=== PATIENT | female | born 1935 | race Caucasian/White ===

== ENCOUNTER 2016-04-21 10:27 | Inpatient (IN) | payer MEDICARE, BC ==
[~2016-04-21] VITALS: Ht 165.1 cm; Wt 48.2 kg
[2016-04-21] MEDS ORDERED: MAG HYDROX 30 ML UDC PO PRN (12:40)
[2016-04-21] MEDS ORDERED: PNEUMO VAC 25 MCG/0.5 ML VL IM.VACC ONE (12:40)
[2016-04-21] MEDS: PROPAFENONE 150 MG TAB PO SCH (16:00)
[2016-04-21] MEDS: ENOXAPARIN 40 MG/0.4 ML SYR SUBQ SCH (17:01)
[2016-04-21] MEDS: DILTIAZEM CD 180 MG CAP PO SCH (17:01)
[2016-04-21] MEDS: DULoxetine 30 MG CAP PO SCH (17:02)
[2016-04-21] MEDS: LINZESS 145 MCG CAPSULE PO SCH (17:02)
[2016-04-21] MEDS: FLUTICASONE 0.05% NA BTL NARE EACH SCH (17:03)
[2016-04-21] MEDS: LISINOPRIL 10 MG TAB PO SCH (17:04)
[2016-04-21 17:34] VITALS: BP_SYST 146; BP_SYST 152; RESP 18; TEMP 98.3
[2016-04-21 17:35] VITALS: RESP 16
[2016-04-21] MEDS: GABAPENTIN 300 MG CAP PO SCH (20:30)
[2016-04-21] MEDS: SYSTANE OP SOLN EYE EACH PRN (20:30)
[2016-04-21] MEDS: ROSUVASTATIN 5 MG TAB PO SCH (20:30)
[2016-04-21] MEDS ORDERED: TUBERCULIN PPD 5 UNIT SYR ID.VACC ONE (21:00)
[2016-04-21] MEDS: ZOLPIDEM 5 MG TAB PO PRN (21:35)
[2016-04-21] MEDS: TRAMADOL 50 MG TAB PO PRN (21:39)
[2016-04-22] MEDS: PROPAFENONE 150 MG TAB PO SCH ×4 (02:03→23:44)
[2016-04-22 03:18] VITALS: BP_SYST 147; TEMP 97.9
[2016-04-22 03:19] VITALS: RESP 18
[2016-04-22] MEDS: LINZESS 145 MCG CAPSULE PO SCH (06:28)
[2016-04-22] MEDS: TRAMADOL 50 MG TAB PO PRN ×2 (07:21→18:35)
[2016-04-22 11:20] VITALS: Ht 165.1 cm; Wt 48.2 kg
[2016-04-22 11:32] VITALS: BP_SYST 136; RESP 16; TEMP 97.6
[2016-04-22] MEDS: ACETAMINOPHEN 325 MG TAB PO PRN ×2 (12:54→17:06)
[2016-04-22] MEDS: SYSTANE OP SOLN EYE EACH PRN ×2 (13:02→21:48)
[2016-04-22] MEDS: FLUTICASONE 0.05% NA BTL NARE EACH SCH (13:03)
[2016-04-22] MEDS: DILTIAZEM CD 180 MG CAP PO SCH (13:04)
[2016-04-22] MEDS: DULoxetine 30 MG CAP PO SCH (13:04)
[2016-04-22] MEDS: LISINOPRIL 10 MG TAB PO SCH (13:05)
[2016-04-22] MEDS: ENOXAPARIN 40 MG/0.4 ML SYR SUBQ SCH (13:08)
[2016-04-22 16:31] VITALS: BP_SYST 166; RESP 16; TEMP 98.2
[2016-04-22] MEDS: BEN GAY TOPICAL PRN (18:36)
[2016-04-22] MEDS: ROSUVASTATIN 5 MG TAB PO SCH (20:31)
[2016-04-22] MEDS: GABAPENTIN 300 MG CAP PO SCH (20:31)
[2016-04-22] MEDS: DOCUSATE SOD 100 MG CAP PO SCH (20:31)
[2016-04-22] MEDS: ZOLPIDEM 5 MG TAB PO PRN (21:48)
[2016-04-23] MEDS: TRAMADOL 50 MG TAB PO PRN ×3 (04:50→18:43)
[2016-04-23 05:16] VITALS: BP_SYST 152; TEMP 98
[2016-04-23] MEDS: LINZESS 145 MCG CAPSULE PO SCH (06:03)
[2016-04-23] MEDS: DULoxetine 30 MG CAP PO SCH (09:16)
[2016-04-23] MEDS: DILTIAZEM CD 180 MG CAP PO SCH (09:17)
[2016-04-23] MEDS: PROPAFENONE 150 MG TAB PO SCH ×2 (09:17→16:33)
[2016-04-23] MEDS: LISINOPRIL 10 MG TAB PO SCH (09:17)
[2016-04-23] MEDS: DOCUSATE SOD 100 MG CAP PO SCH ×2 (09:17→20:52)
[2016-04-23] MEDS: ENOXAPARIN 40 MG/0.4 ML SYR SUBQ SCH (09:18)
[2016-04-23] MEDS: FLUTICASONE 0.05% NA BTL NARE EACH SCH (09:25)
[2016-04-23] MEDS: SYSTANE OP SOLN EYE EACH PRN (09:47)
[2016-04-23 10:09] VITALS: BP_SYST 146; RESP 16; TEMP 97.8
[2016-04-23] MEDS: BEN GAY TOPICAL PRN (14:07)
[2016-04-23] MEDS: ACETAMINOPHEN 325 MG TAB PO PRN (14:07)
[2016-04-23 15:51] VITALS: BP_SYST 147; TEMP 98.4
[2016-04-23 15:52] VITALS: RESP 16
[2016-04-23] MEDS: ZOLPIDEM 5 MG TAB PO PRN (20:52)
[2016-04-23] MEDS: GABAPENTIN 300 MG CAP PO SCH (20:52)
[2016-04-23] MEDS: ROSUVASTATIN 5 MG TAB PO SCH (20:52)
[2016-04-23] MEDS: SKIN TEST: READ AND RECORD XX SCH (20:53)
[2016-04-24] MEDS: PROPAFENONE 150 MG TAB PO SCH ×3 (00:01→16:46)
[2016-04-24 03:56] VITALS: BP_SYST 137; RESP 18; TEMP 97.8
[2016-04-24] MEDS: LINZESS 145 MCG CAPSULE PO SCH (05:58)
[2016-04-24] MEDS: DOCUSATE SOD 100 MG CAP PO SCH ×2 (08:49→21:33)
[2016-04-24] MEDS: TRAMADOL 50 MG TAB PO PRN ×2 (08:49→16:47)
[2016-04-24] MEDS: FLUTICASONE 0.05% NA BTL NARE EACH SCH (08:50)
[2016-04-24] MEDS: DULoxetine 30 MG CAP PO SCH (08:50)
[2016-04-24] MEDS: DILTIAZEM CD 180 MG CAP PO SCH (08:50)
[2016-04-24] MEDS: LISINOPRIL 10 MG TAB PO SCH (08:50)
[2016-04-24] MEDS: ENOXAPARIN 40 MG/0.4 ML SYR SUBQ SCH (08:51)
[2016-04-24] MEDS: SYSTANE OP SOLN EYE EACH PRN (09:56)
[2016-04-24 10:15] VITALS: BP_SYST 131; RESP 18; TEMP 98.9
[2016-04-24 15:29] VITALS: BP_SYST 122; RESP 18; TEMP 98.6
[2016-04-24] MEDS: ZOLPIDEM 5 MG TAB PO PRN (21:33)
[2016-04-24] MEDS: BEN GAY TOPICAL PRN (21:33)
[2016-04-24] MEDS: GABAPENTIN 300 MG CAP PO SCH (21:33)
[2016-04-24] MEDS: ROSUVASTATIN 5 MG TAB PO SCH (21:33)
[2016-04-25] MEDS ORDERED: TRAMADOL 50 MG TAB ONE (00:03)
[2016-04-25] MEDS: PROPAFENONE 150 MG TAB PO SCH ×4 (00:07→23:41)
[2016-04-25] MEDS: TRAMADOL 50 MG TAB PO PRN ×4 (00:09→22:12)
[2016-04-25] MEDS ORDERED: TRAMADOL 50 MG TAB PO PRN (03:55)
[2016-04-25 06:05] VITALS: BP_SYST 136; RESP 18; TEMP 97.9
[2016-04-25] MEDS: LINZESS 145 MCG CAPSULE PO SCH (06:28)
[2016-04-25] MEDS: FLUTICASONE 0.05% NA BTL NARE EACH SCH (08:47)
[2016-04-25] MEDS: SYSTANE OP SOLN EYE EACH PRN ×2 (08:47→20:35)
[2016-04-25] MEDS: DILTIAZEM CD 180 MG CAP PO SCH (08:49)
[2016-04-25] MEDS: DULoxetine 30 MG CAP PO SCH (08:49)
[2016-04-25] MEDS: LISINOPRIL 10 MG TAB PO SCH (08:49)
[2016-04-25] MEDS: DOCUSATE SOD 100 MG CAP PO SCH ×2 (08:49→20:35)
[2016-04-25] MEDS: ENOXAPARIN 40 MG/0.4 ML SYR SUBQ SCH (08:50)
[2016-04-25 13:37] VITALS: BP_SYST 129; RESP 16; TEMP 98.3
[2016-04-25 16:14] VITALS: BP_SYST 126; RESP 18; TEMP 98.5
[2016-04-25] MEDS: GABAPENTIN 300 MG CAP PO SCH (20:35)
[2016-04-25] MEDS: ROSUVASTATIN 5 MG TAB PO SCH (20:35)
[2016-04-25] MEDS: ZOLPIDEM 5 MG TAB PO PRN (22:12)
[2016-04-26 03:46] VITALS: BP_SYST 152; RESP 18; TEMP 98.2
[2016-04-26 03:47] VITALS: TEMP 98.2
[2016-04-26] MEDS: LINZESS 145 MCG CAPSULE PO SCH (06:10)
[2016-04-26] MEDS: DILTIAZEM CD 180 MG CAP PO SCH (08:23)
[2016-04-26] MEDS: DOCUSATE SOD 100 MG CAP PO SCH ×2 (08:23→20:32)
[2016-04-26] MEDS: LISINOPRIL 10 MG TAB PO SCH (08:23)
[2016-04-26] MEDS: DULoxetine 30 MG CAP PO SCH (08:23)
[2016-04-26] MEDS: PROPAFENONE 150 MG TAB PO SCH ×2 (08:23→15:38)
[2016-04-26] MEDS: FLUTICASONE 0.05% NA BTL NARE EACH SCH (08:23)
[2016-04-26] MEDS: ENOXAPARIN 40 MG/0.4 ML SYR SUBQ SCH (08:27)
[2016-04-26 09:38] VITALS: BP_SYST 122; RESP 16; TEMP 98.1
[2016-04-26] MEDS: SYSTANE OP SOLN EYE EACH PRN (09:40)
[2016-04-26 16:01] VITALS: BP_SYST 131; RESP 18; TEMP 98.8
[2016-04-26] MEDS: ROSUVASTATIN 5 MG TAB PO SCH (20:32)
[2016-04-26] MEDS: GABAPENTIN 300 MG CAP PO SCH (20:32)
[2016-04-26] MEDS: ZOLPIDEM 5 MG TAB PO PRN (22:09)
[2016-04-26] MEDS: TRAMADOL 50 MG TAB PO PRN (22:09)
[2016-04-27] MEDS: PROPAFENONE 150 MG TAB PO SCH ×3 (00:21→16:21)
[2016-04-27 04:53] VITALS: BP_SYST 131; RESP 18; TEMP 98.3
[2016-04-27 04:54] VITALS: TEMP 98.3
[2016-04-27] MEDS: LINZESS 145 MCG CAPSULE PO SCH (06:05)
[2016-04-27] MEDS ORDERED: MISSING DOSE XX ONE (09:55)
[2016-04-27] MEDS: DOCUSATE SOD 100 MG CAP PO SCH ×2 (09:57→21:11)
[2016-04-27] MEDS: DILTIAZEM CD 180 MG CAP PO SCH (09:57)
[2016-04-27] MEDS: FLUTICASONE 0.05% NA BTL NARE EACH SCH (09:57)
[2016-04-27] MEDS: LISINOPRIL 10 MG TAB PO SCH (09:57)
[2016-04-27] MEDS: ENOXAPARIN 40 MG/0.4 ML SYR SUBQ SCH (09:57)
[2016-04-27] MEDS: DULoxetine 30 MG CAP PO SCH (09:58)
[2016-04-27] MEDS: SYSTANE OP SOLN EYE EACH PRN (10:03)
[2016-04-27 13:50] VITALS: BP_SYST 121; RESP 16; TEMP 98.4
[2016-04-27 13:59] VITALS: BP_SYST 121; RESP 16; TEMP 98.4
[2016-04-27] MEDS: ACETAMINOPHEN 325 MG TAB PO PRN (16:22)
[2016-04-27 17:16] VITALS: BP_SYST 116; RESP 18; TEMP 98.5
[2016-04-27] MEDS: ROSUVASTATIN 5 MG TAB PO SCH (21:11)
[2016-04-27] MEDS: GABAPENTIN 300 MG CAP PO SCH (21:11)
[2016-04-27] MEDS: ZOLPIDEM 5 MG TAB PO PRN (21:13)
[2016-04-27] MEDS: TRAMADOL 50 MG TAB PO PRN (21:14)
[2016-04-27 23:25] VITALS: BP_SYST 147; RESP 18; TEMP 98.1
[2016-04-28] MEDS: PROPAFENONE 150 MG TAB PO SCH ×4 (00:08→23:39)
[2016-04-28] MEDS: LINZESS 145 MCG CAPSULE PO SCH (06:05)
[2016-04-28 07:46] VITALS: BP_SYST 110; RESP 16; TEMP 97.9
[2016-04-28] MEDS: FLUTICASONE 0.05% NA BTL NARE EACH SCH (09:25)
[2016-04-28] MEDS: DOCUSATE SOD 100 MG CAP PO SCH ×2 (09:25→20:34)
[2016-04-28] MEDS: SYSTANE OP SOLN EYE EACH PRN (09:25)
[2016-04-28] MEDS: LISINOPRIL 10 MG TAB PO SCH (09:26)
[2016-04-28] MEDS: ENOXAPARIN 40 MG/0.4 ML SYR SUBQ SCH (09:29)
[2016-04-28] MEDS: DILTIAZEM CD 180 MG CAP PO SCH (09:29)
[2016-04-28] MEDS: DULoxetine 30 MG CAP PO SCH (09:29)
[2016-04-28] MEDS: TRAMADOL 50 MG TAB PO PRN ×3 (09:34→22:01)
[2016-04-28 16:34] VITALS: BP_SYST 125; RESP 18; TEMP 98.5
[2016-04-28] MEDS: ROSUVASTATIN 5 MG TAB PO SCH (20:34)
[2016-04-28] MEDS: GABAPENTIN 300 MG CAP PO SCH (20:34)
[2016-04-28] MEDS ORDERED: TUBERCULIN PPD 5 UNIT SYR ID.VACC ONE (21:00)
[2016-04-28] MEDS: ZOLPIDEM 5 MG TAB PO PRN (22:01)
[2016-04-29] MEDS: LINZESS 145 MCG CAPSULE PO SCH (06:01)
[2016-04-29 06:34] VITALS: BP_SYST 139; RESP 18; TEMP 97.9
[2016-04-29] MEDS: DOCUSATE SOD 100 MG CAP PO SCH ×2 (08:39→20:30)
[2016-04-29] MEDS: PROPAFENONE 150 MG TAB PO SCH ×3 (08:39→23:49)
[2016-04-29] MEDS: LISINOPRIL 10 MG TAB PO SCH (08:39)
[2016-04-29] MEDS: DULoxetine 30 MG CAP PO SCH (08:39)
[2016-04-29] MEDS: DILTIAZEM CD 180 MG CAP PO SCH (08:39)
[2016-04-29] MEDS: TRAMADOL 50 MG TAB PO PRN ×2 (08:39→18:36)
[2016-04-29] MEDS: SYSTANE OP SOLN EYE EACH PRN ×2 (08:40→20:31)
[2016-04-29] MEDS: FLUTICASONE 0.05% NA BTL NARE EACH SCH (08:40)
[2016-04-29] MEDS: ENOXAPARIN 40 MG/0.4 ML SYR SUBQ SCH (08:41)
[2016-04-29 10:33] VITALS: BP_SYST 111; RESP 16; TEMP 97.7
[2016-04-29 16:24] VITALS: BP_SYST 133; RESP 16; TEMP 98.1
[2016-04-29] MEDS: GABAPENTIN 300 MG CAP PO SCH (20:30)
[2016-04-29] MEDS: ROSUVASTATIN 5 MG TAB PO SCH (20:30)
[2016-04-29] MEDS: BEN GAY TOPICAL PRN (20:31)
[2016-04-29] MEDS: ZOLPIDEM 5 MG TAB PO PRN (21:36)
[2016-04-30 05:31] VITALS: BP_SYST 141; RESP 20; TEMP 98.1
[2016-04-30] MEDS: LINZESS 145 MCG CAPSULE PO SCH (06:11)
[2016-04-30] MEDS: FLUTICASONE 0.05% NA BTL NARE EACH SCH (08:29)
[2016-04-30] MEDS: DULoxetine 30 MG CAP PO SCH (08:30)
[2016-04-30] MEDS: DILTIAZEM CD 180 MG CAP PO SCH (08:30)
[2016-04-30] MEDS: PROPAFENONE 150 MG TAB PO SCH ×3 (08:30→23:30)
[2016-04-30] MEDS: LISINOPRIL 10 MG TAB PO SCH (08:30)
[2016-04-30] MEDS: DOCUSATE SOD 100 MG CAP PO SCH ×2 (08:30→20:24)
[2016-04-30] MEDS: TRAMADOL 50 MG TAB PO PRN ×2 (08:32→20:25)
[2016-04-30] MEDS: ENOXAPARIN 40 MG/0.4 ML SYR SUBQ SCH (08:39)
[2016-04-30 12:01] VITALS: BP_SYST 119; RESP 18; TEMP 98.3
[2016-04-30 16:26] VITALS: BP_SYST 112; RESP 16; TEMP 98.4
[2016-04-30] MEDS: GABAPENTIN 300 MG CAP PO SCH (20:24)
[2016-04-30] MEDS: ROSUVASTATIN 5 MG TAB PO SCH (20:24)
[2016-04-30] MEDS: SKIN TEST: READ AND RECORD XX SCH (20:27)
[2016-04-30] MEDS: ZOLPIDEM 5 MG TAB PO PRN (21:33)
[2016-04-30] MEDS: SYSTANE OP SOLN EYE EACH PRN (21:36)
[2016-05-01 00:45] VITALS: BP_SYST 139; RESP 18; TEMP 98
[2016-05-01] MEDS: LINZESS 145 MCG CAPSULE PO SCH (06:14)
[2016-05-01] MEDS: LISINOPRIL 10 MG TAB PO SCH (08:53)
[2016-05-01] MEDS: FLUTICASONE 0.05% NA BTL NARE EACH SCH (08:53)
[2016-05-01] MEDS: DOCUSATE SOD 100 MG CAP PO SCH ×2 (08:53→20:11)
[2016-05-01] MEDS: PROPAFENONE 150 MG TAB PO SCH ×3 (08:54→23:00)
[2016-05-01] MEDS: DILTIAZEM CD 180 MG CAP PO SCH (08:54)
[2016-05-01] MEDS: DULoxetine 30 MG CAP PO SCH (08:54)
[2016-05-01] MEDS: ENOXAPARIN 40 MG/0.4 ML SYR SUBQ SCH (08:55)
[2016-05-01] MEDS: SYSTANE OP SOLN EYE EACH PRN ×2 (08:56→21:30)
[2016-05-01] MEDS: BEN GAY TOPICAL PRN (11:06)
[2016-05-01] MEDS: TRAMADOL 50 MG TAB PO PRN ×2 (11:07→17:57)
[2016-05-01 13:15] VITALS: BP_SYST 125; RESP 16; TEMP 98.2
[2016-05-01 13:16] VITALS: TEMP 98.2
[2016-05-01 16:55] VITALS: BP_SYST 140; RESP 18; TEMP 98.5
[2016-05-01] MEDS: ROSUVASTATIN 5 MG TAB PO SCH (20:11)
[2016-05-01] MEDS: GABAPENTIN 300 MG CAP PO SCH (20:11)
[2016-05-01] MEDS: ZOLPIDEM 5 MG TAB PO PRN (21:30)
[2016-05-02] VITALS (7 sets, daily range): BP systolic 115–140; RESP 18; TEMP 97.8–98.1
[2016-05-02] MEDS: LINZESS 145 MCG CAPSULE PO SCH (06:07)
[2016-05-02] MEDS: PROPAFENONE 150 MG TAB PO SCH ×3 (08:18→23:52)
[2016-05-02] MEDS: DILTIAZEM CD 180 MG CAP PO SCH (08:18)
[2016-05-02] MEDS: SYSTANE OP SOLN EYE EACH PRN (08:18)
[2016-05-02] MEDS: DULoxetine 30 MG CAP PO SCH (08:18)
[2016-05-02] MEDS: LISINOPRIL 10 MG TAB PO SCH (08:19)
[2016-05-02] MEDS: TRAMADOL 50 MG TAB PO PRN ×2 (08:19→16:30)
[2016-05-02] MEDS: DOCUSATE SOD 100 MG CAP PO SCH ×2 (08:19→20:53)
[2016-05-02] MEDS: ENOXAPARIN 40 MG/0.4 ML SYR SUBQ SCH (08:20)
[2016-05-02] MEDS: FLUTICASONE 0.05% NA BTL NARE EACH SCH (08:20)
[2016-05-02] MEDS: ROSUVASTATIN 5 MG TAB PO SCH (20:53)
[2016-05-02] MEDS: GABAPENTIN 300 MG CAP PO SCH (20:53)
[2016-05-02] MEDS: ZOLPIDEM 5 MG TAB PO PRN (21:30)
[2016-05-03] MEDS: LINZESS 145 MCG CAPSULE PO SCH (06:13)
[2016-05-03] MEDS: SYSTANE OP SOLN EYE EACH PRN (09:35)
[2016-05-03] MEDS: FLUTICASONE 0.05% NA BTL NARE EACH SCH (09:35)
[2016-05-03] MEDS: PROPAFENONE 150 MG TAB PO SCH ×3 (09:35→23:28)
[2016-05-03] MEDS: ENOXAPARIN 40 MG/0.4 ML SYR SUBQ SCH (09:36)
[2016-05-03] MEDS: LISINOPRIL 10 MG TAB PO SCH (09:37)
[2016-05-03] MEDS: TRAMADOL 50 MG TAB PO PRN ×2 (09:37→16:28)
[2016-05-03] MEDS: DOCUSATE SOD 100 MG CAP PO SCH ×2 (09:37→20:35)
[2016-05-03] MEDS: DILTIAZEM CD 180 MG CAP PO SCH (09:38)
[2016-05-03] MEDS: DULoxetine 30 MG CAP PO SCH (09:38)
[2016-05-03 09:40] VITALS: TEMP 98
[2016-05-03 09:43] VITALS: BP_SYST 126; RESP 20
[2016-05-03 20:10] VITALS: BP_SYST 129; TEMP 99
[2016-05-03] MEDS: GABAPENTIN 300 MG CAP PO SCH (20:35)
[2016-05-03] MEDS: ROSUVASTATIN 5 MG TAB PO SCH (20:35)
[2016-05-03] MEDS: ZOLPIDEM 5 MG TAB PO PRN (21:42)
[2016-05-03] MEDS: BEN GAY TOPICAL PRN (21:42)
[2016-05-04 02:12] VITALS: BP_SYST 148; RESP 20; TEMP 98
[2016-05-04] MEDS: LINZESS 145 MCG CAPSULE PO SCH (06:20)
[2016-05-04] MEDS: PROPAFENONE 150 MG TAB PO SCH ×3 (08:28→23:23)
[2016-05-04] MEDS: DULoxetine 30 MG CAP PO SCH (08:28)
[2016-05-04] MEDS: DILTIAZEM CD 180 MG CAP PO SCH (08:28)
[2016-05-04] MEDS: DOCUSATE SOD 100 MG CAP PO SCH ×2 (08:28→20:52)
[2016-05-04] MEDS: FLUTICASONE 0.05% NA BTL NARE EACH SCH (08:28)
[2016-05-04] MEDS: LISINOPRIL 10 MG TAB PO SCH (08:29)
[2016-05-04] MEDS: ENOXAPARIN 40 MG/0.4 ML SYR SUBQ SCH (08:30)
[2016-05-04 09:31] VITALS: BP_SYST 114; RESP 16; TEMP 97.7
[2016-05-04 15:50] VITALS: BP_SYST 121; RESP 18; TEMP 98
[2016-05-04] MEDS: SYSTANE OP SOLN EYE EACH PRN (16:20)
[2016-05-04] MEDS: TRAMADOL 50 MG TAB PO PRN (17:57)
[2016-05-04] MEDS: ROSUVASTATIN 5 MG TAB PO SCH (20:52)
[2016-05-04] MEDS: BEN GAY TOPICAL PRN (20:52)
[2016-05-04] MEDS: GABAPENTIN 300 MG CAP PO SCH (20:52)
[2016-05-04] MEDS: ZOLPIDEM 5 MG TAB PO PRN (21:21)
[2016-05-04 22:41] VITALS: BP_SYST 136; RESP 18; TEMP 97.8
[2016-05-05] MEDS: LINZESS 145 MCG CAPSULE PO SCH (06:10)
[2016-05-05 09:41] VITALS: BP_SYST 143
[2016-05-05 09:42] VITALS: RESP 20; TEMP 98.2
[2016-05-05] MEDS: PROPAFENONE 150 MG TAB PO SCH ×3 (10:24→23:52)
[2016-05-05] MEDS: SYSTANE OP SOLN EYE EACH PRN (10:24)
[2016-05-05] MEDS: LISINOPRIL 10 MG TAB PO SCH (10:25)
[2016-05-05] MEDS: DOCUSATE SOD 100 MG CAP PO SCH ×2 (10:25→20:53)
[2016-05-05] MEDS: ENOXAPARIN 40 MG/0.4 ML SYR SUBQ SCH (10:26)
[2016-05-05] MEDS: DULoxetine 30 MG CAP PO SCH (10:26)
[2016-05-05] MEDS: DILTIAZEM CD 180 MG CAP PO SCH (10:27)
[2016-05-05] MEDS: FLUTICASONE 0.05% NA BTL NARE EACH SCH (10:28)
[2016-05-05] MEDS: TRAMADOL 50 MG TAB PO PRN ×2 (10:28→16:39)
[2016-05-05 15:53] VITALS: BP_SYST 115; RESP 18; TEMP 98.3
[2016-05-05] MEDS: GABAPENTIN 300 MG CAP PO SCH (20:53)
[2016-05-05] MEDS: ROSUVASTATIN 5 MG TAB PO SCH (20:53)
[2016-05-05] MEDS: ZOLPIDEM 5 MG TAB PO PRN (21:39)
[2016-05-06 00:11] VITALS: BP_SYST 126; RESP 18; TEMP 97.7
[2016-05-06] MEDS: LINZESS 145 MCG CAPSULE PO SCH (06:19)
[2016-05-06] MEDS: TRAMADOL 50 MG TAB PO PRN ×2 (07:29→17:08)
[2016-05-06] MEDS: PROPAFENONE 150 MG TAB PO SCH ×3 (07:40→23:15)
[2016-05-06] MEDS: FLUTICASONE 0.05% NA BTL NARE EACH SCH (08:41)
[2016-05-06] MEDS: DILTIAZEM CD 180 MG CAP PO SCH (08:42)
[2016-05-06] MEDS: SYSTANE OP SOLN EYE EACH PRN ×2 (08:42→22:01)
[2016-05-06] MEDS: DULoxetine 30 MG CAP PO SCH (08:42)
[2016-05-06] MEDS: DOCUSATE SOD 100 MG CAP PO SCH ×2 (08:43→20:38)
[2016-05-06] MEDS: POLYETHYLENE GLYCOL 17 GM PACKET PO PRN (08:43)
[2016-05-06] MEDS: LISINOPRIL 10 MG TAB PO SCH (08:44)
[2016-05-06] MEDS: BEN GAY TOPICAL PRN (08:45)
[2016-05-06] MEDS: ENOXAPARIN 40 MG/0.4 ML SYR SUBQ SCH (08:47)
[2016-05-06 09:59] VITALS: BP_SYST 107; RESP 16; TEMP 98.5
[2016-05-06 16:00] VITALS: BP_SYST 119; RESP 18; TEMP 97.9
[2016-05-06] MEDS: GABAPENTIN 300 MG CAP PO SCH (20:38)
[2016-05-06] MEDS: ROSUVASTATIN 5 MG TAB PO SCH (20:38)
[2016-05-06] MEDS: ZOLPIDEM 5 MG TAB PO PRN (22:01)
[2016-05-07 05:02] VITALS: BP_SYST 148; RESP 18; TEMP 97.9
[2016-05-07] MEDS: LINZESS 145 MCG CAPSULE PO SCH (06:06)
[2016-05-07] MEDS: DILTIAZEM CD 180 MG CAP PO SCH (08:20)
[2016-05-07] MEDS: DULoxetine 30 MG CAP PO SCH (08:20)
[2016-05-07] MEDS: FLUTICASONE 0.05% NA BTL NARE EACH SCH (08:20)
[2016-05-07] MEDS: PROPAFENONE 150 MG TAB PO SCH (08:20)
[2016-05-07] MEDS: DOCUSATE SOD 100 MG CAP PO SCH (08:20)
[2016-05-07] MEDS: LISINOPRIL 10 MG TAB PO SCH (08:21)
[2016-05-07] MEDS: ENOXAPARIN 40 MG/0.4 ML SYR SUBQ SCH (08:22)
[2016-05-07] MEDS: POLYETHYLENE GLYCOL 17 GM PACKET PO PRN (09:05)
[2016-05-07] MEDS: ACETAMINOPHEN 325 MG TAB PO PRN (10:35)
[2016-05-07] MEDS: SYSTANE OP SOLN EYE EACH PRN (10:36)
[2016-05-07 10:38] VITALS: BP_SYST 148; RESP 18; TEMP 97.9
[2016-05-07 11:10] VITALS: BP_SYST 127; RESP 20; TEMP 97.6
== END 2016-05-07 14:18 | disposition home health service (06) | DRG 556 ==
LOC: NF 16:55 → ENPENDDIS 16:55 → NF 04-22 19:04
PROVIDERS: ADMIT Family Medicine; ATTEND Family Medicine
DX: R26.2 Difficulty in walking, not elsewhere classified (principal); N39.0 Urinary tract infection, site not specified; I10 Essential (primary) hypertension; G89.29 Other chronic pain; J30.9 Allergic rhinitis, unspecified; I49.9 Cardiac arrhythmia, unspecified; Z66 Do not resuscitate
CPT/HCPCS: 36415; 80048; 82565; 85025; 86580; 94799; 99306; 99308; 99309; 99316